=== PATIENT | female | born 1990 | race Two or more races ===

== ENCOUNTER → 2025-01-07 | Outpatient (CLI) | payer OTHER, MEDICAID, SELFPAY ==
--- NOTE | 2025-01-07 12:30 | XR_ITS ---
Examination: Thyroid sonography Technique: Grayscale sonographic images thyroid lobes Date and time: August 07, 2024 1241 hrs. Indications: History thyroid nodules on thyroid sonogram July 29, 2017, diagnosis nontoxic goiter. Findings: Right thyroid 5.5 cm Midpole nodule 7 x 7 mm Lower pole nodule 8 x 5 mm Left thyroid 4.4 cm Pulmonary nodule 13 x 11 mm Bilateral small cysts Smaller bilateral thyroid nodules Impression: Multiple bilateral thyroid nodules, recommend continued 6 month follow-up thyroid sonography
== END | disposition home or self-care (01) ==
PROVIDERS: PCP Nurse Practitioner Family; Referring Provider Nurse Practitioner Family; Visit Provider Nurse Practitioner Family
DX: E04.2 Nontoxic multinodular goiter (principal)
CPT/HCPCS: 76536